=== PATIENT | male | born 1990 | race Caucasian/White ===

== ENCOUNTER 2016-12-01 14:04 | Emergency (ER) | payer OTHER ==
[2016-12-01 14:27] VITALS: BMI 34.2
[2016-12-01 14:28] VITALS: BP 128/79
--- NOTE | 2016-12-01 14:46 | DR.GENAD ---
HPI - PCP Primary Care Physician: MARCO - HPI Comment HPI Comment: PATIENT SAID HE HAS EPIGASTRIC AND RUQ PAIN RADIATING TO THE BACK TIMES 2 DAYS WITH ANOREXIA, NAUSEA AND VOMITING. NO FEVER. NO DYSURIA. PAIN INTERMITTENT BUT CONSTANT TODAY. - Complaint/Symptoms Chief Complaint Doctors Comments: ABDOMINAL PAIN TIMES 2 DAYS WITH NAUSEA AND VOMITING. Chief Complaint:: " BAD BACK PAIN FOR 2 DAYS OFF AND ON. NO APPETITE, HASN'T ATE IN 2 DAYS. LOWER STERNAL PAIN." Self Treatment fo Chief Complaint: NONE - Nurses notes reviewed Nurses Notes Review: Yes - Source History Provided: Patient - Mode of Arrival Mode of Arrival: Ambulatory - Timing Onset of Chief Complaint: 11/29/16 Came on: Suddenly - Duration Duration: Constant Duration: Days - Severity Severity: Moderate PMH - PMH Past Medical History: Yes Past Surgical History: Yes Past Surgical History Comment: LEFT COLLAR BONE - Family History History of Family Medical Conditions: Yes Family Medical History: [place] Family Medical History Comment: MOTHER HAD [place] - Social History Does patient currently use any type of tobacco product: Yes Have you used tobacco products in the last 12 months: Yes Type of Tobacco Use: Cigarettes How many years tobacco product used: 5 Does any household member use tobacco: Yes Alcohol Use: None Do you use any recreational Drugs:: No Lives With: Significant Other Lives Where: Home - infectious screening In the last 2 months have you had wt loss of >10#?: NO Have you had fever, night sweats or hemotysis?: No Have you traveled outside the country in the last 6 months?: No ROS - Review of Systems Constitutional: Weakness, Fatigue. negative: Chills, Fever Eyes: No Symptoms Reported ENTM: No Symptoms Reported Respiratoy: No Symptoms Reported Cardiovascular: No Symptoms Reported Gastrointestinal/Abdominal: Abdominal Pain, Nausea, Vomiting Neurological: No Symptoms Reported Musculoskeletal: No Symptoms Reported Integumentary: No Symptoms Reported Hematologic/Lymphatic: No Symptoms Reported Endocrine: No Symptoms Reported All Other Systems: Reviewed and Negative PE - Vital Signs Vitals: Temperature 97.9 F Pulse Rate 93 Respiratory Rate 18 Blood Pressure 128/79 O2 Sat by Pulse Oximetry 97 - General Limitations: No Limitations General Appearance: Alert - Head Head Exam: Normal Inspection - Eyes Eye exam: Normal Appearance - ENT ENT Exam: Normal External Ear Exam External Ear Exam: Normal External Inspection TM/Canal Exam: Bilateral Normal Nose Exam: Normal Nose Exam Mouth Exam: Normal Inspection Throat Exam: Normal Inspection - Neck Neck Exam: Trachea Midline - Chest Chest Inspection: Symmetric Chest Wall Rise - Respiratory Respiratory Exam: Normal Lung Sounds Bilat Respiratory Exam: Bilateral Clear to Auscultation - Cardiovascular Cardiovascular Exam: Regular Rate, Normal Rhythm, Normal Heart Sounds - Abdominal Exam Abdominal Exam: Normal Bowel Sounds, Soft, Tenderness Abdominal Tenderness: RUQ, Epigastrium, Moderate - Extremities Extremities Exam: Normal Inspection - Back Back Exam: Normal Inspection - Neurologic Neurological Exam: Alert, Oriented X3 - Psychiatric Psychiatric Exam: Anxious - Skin Skin Exam: Dry MDM - Additional Information Additional Information Obtained From: Family - Differential Diagnosis Differential Diagnosis: ABDOMINAL PAIN, GASTRITIS/REFLUX DISEASE, UTI, Course - Treatment Treatment: SEE ORDERS. - Education/Counseling Education/Counseling: Patient, Family, Education Educated On: Treatment, Diagnosis, Needs for Follow Up ROR - Labs Reviewed Laboratory Results Reviewed?: Yes Result Diagrams: 12/01/16 15:00 12/01/16 15:00 Laboratory: WBC 11.1 X10^3/uL (3.6-10.0) H 12/01/16 15:00 RBC 5.48 X10^6/uL (4.7-6.0) 12/01/16 15:00 Hgb 14.9 g/dL (13.5-18.0) 12/01/16 15:00 Hct 43.9 % (42.0-54.0) 12/01/16 15:00 MCV 80.1 fL (80.0-100.0) 12/01/16 15:00 MCH 27.3 pg (27.0-34.0) 12/01/16 15:00 MCHC 34.0 g/dL (33.0-35.0) 12/01/16 15:00 RDW 12.6 % (11.6-16.5) 12/01/16 15:00 Plt Count 274 X10^3/uL (150.0-450.0) 12/01/16 15:00 MPV 7.7 fL (7.4-11.0) 12/01/16 15:00 Neut % 64.6 % (42.0-75.0) 12/01/16 15:00 Lymph % 25.1 % (21.0-51.0) 12/01/16 15:00 [place] % 7.3 % (0.0-13.0) 12/01/16 15:00 Eos % 2.4 % (0.9-2.9) 12/01/16 15:00 Baso % 0.6 % (0.2-1.0) 12/01/16 15:00 Neut # 7.2 x10^3/uL (2.2-4.8) H 12/01/16 15:00 Lymph # 2.8 X10^3/uL (1.3-2.9) 12/01/16 15:00 [place] # 0.8 x10^3/uL (0.3-0.8) 12/01/16 15:00 Eos # 0.3 x10^3/uL (0.0-0.2) H 12/01/16 15:00 Baso # 0.1 X10^3/uL (0.0-0.1) 12/01/16 15:00 Absolute Nucleated RBC 0.0 /100WBC 12/01/16 15:00 Sodium 141 mmol/L (136-145) 12/01/16 15:00 Corrected Sodium TNP 12/01/16 15:00 Potassium 3.7 mmol/L (3.5-5.1) 12/01/16 15:00 Chloride 107 mmol/L (98-107) 12/01/16 15:00 Carbon Dioxide 29.8 mmol/L (21-32) 12/01/16 15:00 BUN 10 mg/dL (7-18) 12/01/16 15:00 Creatinine 1.01 mg/dL (0.70-1.30) 12/01/16 15:00 Est GFR (MDRD) Af Amer > 60 (>60) 12/01/16 15:00 Est GFR (MDRD) Non-Af > 60 (>60) 12/01/16 15:00 Glucose 90 mg/dL (65-99) 12/01/16 15:00 Calcium 8.9 mg/dL (8.5-10.1) 12/01/16 15:00 Corrected Calcium TNP 12/01/16 15:00 Total Bilirubin 0.40 mg/dL (0.2-1.0) 12/01/16 15:00 AST 16 Units/L (15-37) 12/01/16 15:00 ALT 34 Units/L (12-78) 12/01/16 15:00 Alkaline Phosphatase 80 Units/L (46-116) 12/01/16 15:00 Total Protein 7.2 g/dL (6.4-8.2) 12/01/16 15:00 Albumin 3.8 g/dL (3.4-5.0) 12/01/16 15:00 Globulin 3.4 g/dL (2.5-4.5) 12/01/16 15:00 Albumin/Globulin Ratio 1.1 Ratio (1.1-2.1) 12/01/16 15:00 Amylase 42 Units/L (25-115) 12/01/16 15:00 Lipase 91 Units/L (73-393) 12/01/16 15:00 Specimen Type Clean catch urine 12/01/16 15:57 Urine Color Dark yellow (YELLOW) 12/01/16 15:57 Urine Appearance Slightly hazy (CLEAR) 12/01/16 15:57 Urine pH 6.0 (5.0 - 8.0) 12/01/16 15:57 Ur Specific [place] 1.030 (1.000-1.030) 12/01/16 15:57 Urine Protein 2+ (NEGATIVE) 12/01/16 15:57 Urine Glucose (UA) Negative (NEGATIVE) 12/01/16 15:57 Urine Ketones Negative (NEGATIVE) 12/01/16 15:57 Urine Occult Blood 2+ (NEGATIVE) 12/01/16 15:57 Urine Nitrite Negative (NEGATIVE) 12/01/16 15:57 Urine Bilirubin Negative (NEGATIVE) 12/01/16 15:57 Urine Urobilinogen Normal (NORMAL) 12/01/16 15:57 Ur Leukocyte Esterase Negative (NEGATIVE) 12/01/16 15:57 Urine RBC 3-5 /HPF (NEGATIVE) 12/01/16 15:57 Urine WBC 0-2 /HPF (NEGATIVE) 12/01/16 15:57 Ur Squamous Epith Cells Rare /HPF (NEGATIVE) 12/01/16 15:57 Calcium Oxalate Crystal Rare /HPF (NEGATIVE) 12/01/16 15:57 Urine Bacteria Trace /HPF (NEGATIVE) 12/01/16 15:57 Urine Mucus Many /HPF (NEGATIVE) 12/01/16 15:57 Urine Sperm Few /HPF (NEGATIVE) 12/01/16 15:57 Ur Culture Indicated? No/not indicated 12/01/16 15:57 H. pylori IgG Antibody Negative (NEGATIVE) 12/01/16 15:00 - XRAY XRAY Interpreted by: Radiologist XRAY Findings: REPORT DISCUSS WITH PATIENT. - Diagnosis Discharge Problem: Abdominal pain Qualifiers: Abdominal location: upper abdomen, unspecified Qualified Code(s): R10.10 - Upper abdominal pain, unspecified Nausea & vomiting Qualifiers: Vomiting type: bilious vomiting Qualified Code(s): R11.14 - Bilious vomiting Gastritis Qualifiers: Gastritis type: unspecified gastritis Chronicity: acute Gastritis bleeding: without bleeding Qualified Code(s): K29.00 - Acute gastritis without bleeding - Discharge Plan Disposition: HOME, SELF-CARE Condition: Stable Prescriptions: Ondansetron HCl [Zofran Tab 4 mg] 4 mg PO Q8H PRN #12 tab PRN Reason: Nausea/Vomiting Ranitidine HCl [ZANTAC TAB 150 MG *] 150 mg PO BID #60 tab - Follow ups/Referrals Follow ups/Referrals: CHARLIE LARA [Primary Care Provider] - 1 day - Instructions Instructions: Abdominal Pain, Adult, [id number] Additional Instructions: RETURN TO ED IF WORSE.
[2016-12-01 15:08] LABS: BASOPHILS # (AUTO) 0.1 X10^3/uL (0.0-0.1); BASOPHILS % (AUTO) 0.6 % (0.2-1.0); EOSINOPHILS # (AUTO) 0.3 x10^3/uL (0.0-0.2); EOSINOPHILS % (AUTO) 2.4 % (0.9-2.9); HEMATOCRIT 43.9 % (42.0-54.0); HEMOGLOBIN 14.9 g/dL (13.5-18.0); LYMPHOCYTES # (AUTO) 2.8 X10^3/uL (1.3-2.9); LYMPHOCYTES % (AUTO) 25.1 % (21.0-51.0); MEAN CORPUSCULAR HEMOGLOBIN 27.3 pg (27.0-34.0); MEAN CORPUSCULAR VOLUME 80.1 fL (80.0-100.0); MEAN PLATELET VOLUME 7.7 fL (7.4-11.0); MONOCYTES # (AUTO) 0.8 x10^3/uL (0.3-0.8); MONOCYTES % (AUTO) 7.3 % (0.0-13.0); NEUTROPHILS # (AUTO) 7.2 x10^3/uL (2.2-4.8); NEUTROPHILS % (AUTO) 64.6 % (42.0-75.0); PLATELET COUNT 274 X10^3/uL (150.0-450.0); RED BLOOD COUNT 5.48 X10^6/uL (4.7-6.0); RED CELL DISTRIBUTION WIDTH 12.6 % (11.6-16.5); WHITE BLOOD COUNT 11.1 X10^3/uL (3.6-10.0)
[2016-12-01 15:20] LABS: ALANINE AMINOTRANSFERASE 34 Units/L (12-78); ALBUMIN 3.8 g/dL (3.4-5.0); ALKALINE PHOSPHATASE 80 Units/L (46-116); AMYLASE 42 Units/L (25-115); ASPARTATE AMINO TRANSFERASE 16 Units/L (15-37); BLOOD UREA NITROGEN 10 mg/dL (7-18); CALCIUM 8.9 mg/dL (8.5-10.1); CARBON DIOXIDE 29.8 mmol/L (21-32); CHLORIDE 107 mmol/L (98-107); CREATININE 1.01 mg/dL (0.70-1.30); GLUCOSE 90 mg/dL (65-99); LIPASE 91 Units/L (73-393); SODIUM 141 mmol/L (136-145); TOTAL PROTEIN 7.2 g/dL (6.4-8.2); eGFR BLACK RACES > 60 (>60); eGFR NON BLACK RACES > 60 (>60)
[2016-12-01] MEDS ORDERED: MORPHINE SULFATE INJ 4 MG IM ONE (15:49)
[2016-12-01] MEDS ORDERED: ZOFRAN INJ 4 MG VIAL IM ONE (15:49)
[2016-12-01 16:04] LABS: BILIRUBIN,URINE NEGATIVE (NEGATIVE); BLOOD/HEMOGLOBIN,URINE 2+ (NEGATIVE); GLUCOSE, URINE NEGATIVE (NEGATIVE); KETONES,URINE NEGATIVE (NEGATIVE); LEUKOCYTE ESTERASE ,URINE NEGATIVE (NEGATIVE); NITRITES,URINE NEGATIVE (NEGATIVE); PROTEIN,URINE 2+ (NEGATIVE); UROBILINOGEN,URINE NORMAL (NORMAL)
--- NOTE | 2016-12-01 16:13 | US ---
HISTORY: Right upper quadrant pain. Study: Right upper quadrant abdominal ultrasound Comparison: None. Technique: Multiple denny scale and color flow Doppler images of the right upper quadrant were obtaine d. Findings: The liver is normal in echotexture and size. No focal intraparenchymal mass or intrahepatic biliary ductal dilatation can be observed. The gallbladder fails to demonstrate evidence for cholelithiasis or layering sludge. The common bile duct is unremarkable measuring 4 mm. No pericholecystic fluid o r gallbladder wall thickening can be observed. The right kidney appears normal in size without focal parenchymal mass or nephrolithiasis. The right kidney measurers none 9.2 cm. No hydronephrosis or perirenal fluid can be observed. The pancreas i s largely obscured by overlying bowel gas. IMPRESSION: No sonographic evidence of cholelithiasis or acute cholecystitis. Reported By:
[2016-12-01 16:18] LABS: APPEARANCE,URINE SLIGHTLY HAZY (CLEAR); BACTERIA,URINE TRACE /HPF (NEGATIVE); CALCIUM OXALATE CRYSTALS,UR RARE /HPF (NEGATIVE); COLOR,URINE DARK YELLOW (YELLOW); MUCUS,URINE MANY /HPF (NEGATIVE); SPERM,URINE FEW /HPF (NEGATIVE); SQUAMOUS EPITHELIAL CELL,UR RARE /HPF (NEGATIVE)
[2016-12-01] MEDS ORDERED: NS 1000 ML 1,000 ML IV ONE (16:30)
[2016-12-01] MEDS ORDERED: NS 1000 ML 1,000 ML ONE (16:33)
--- NOTE | 2016-12-01 17:35 | CT ---
CT abdomen and pelvis without contrast Indication: Right upper quadrant and epigastric pain with nausea and vomiting Technique: Helical CT images of the abdomen and pelvis were obtained without IV contrast. Reformatted images in the coronal and sagittal planes were also generated for review. Comparison: Right upper quadrant ultrasound from same day Findings: The visualized lung bases are clear. No aggressive osseous lesions are identified. Within the limits of a noncontrast exam the liver, gallbladder, spleen, pancreas adrenal glands and r ight kidney are unremarkable. There is a punctate nonobstructing stone within the upper left kidney. No additional radiopaque urinary tract calculi are identified and there is no hydroureteronephrosis. There is suggestion of moderate gastric wall thickening and edema, most significant within the gastri c antrum. The remaining GI tract, including the appendix is normal. The IVC, abdominal aorta, urinary bladder and prostate are unremarkable. No free air, free fluid or lymphadenopathy is identified. Impression: 1. Moderate gastric wall thickening and edema, suggestive for gastritis. Otherwise, no additional acu te abnormality identified to account for patient's symptoms. 2. Nonobstructing left nephrolithiasis. Reported By:
[2016-12-01] MEDS ORDERED: PROTONIX INJ 40 MG VIAL IVP ONE (17:50)
[2016-12-01] MEDS ORDERED: PROTONIX INJ 40 MG VIAL ONE ×2 (17:53→17:57)
== END 2016-12-01 18:02 | disposition home or self-care (01) ==
LOC: ER 14:33
DX: K29.00 Acute gastritis without bleeding (principal); R10.84 Generalized abdominal pain; R11.14 Bilious vomiting; N20.0 Calculus of kidney
CPT/HCPCS: 36415; 74176; 76705; 80053; 81001; 82150; 83690; 85025; 86677; 96365; 96372; 96374; 99283; A4222; C9113